=== PATIENT | female | born 1950 | race Caucasian/White ===

== ENCOUNTER 2019-10-04 19:43 | Inpatient (IN) | payer MEDICARE ==
[2019-10-04] MEDS ORDERED: PANTOPRAZOLE 40 MG/10 ML VIAL IVP ONE (20:04)
--- NOTE | 2019-10-04 20:04 | ED ---
General Adult HPI - General Chief complaint: Weakness Stated complaint: low hemoglobin Time Seen by Provider: 10/04/19 19:46 Source: patient Mode of arrival: EMS Limitations: no limitations - History of Present Illness Initial comments: Dictation was produced using [employer] dictation software. please excuse any grammatical, word or spelling errors. This patient was cared for during a federal and state declared state of emergency secondary to Covid 19 Chief Complaint: 69-year-old female transferred from [facility] for anemia. 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 She was instructed to quit emergency department because he did not quite look well. Patient had a workup that district where is found that patient's hemoglobin was very low measuring in the fives. Patient has been complaining of bloody stools eared patient does take anticoagulation medications for A. fib. Patient currently on apixaban. Patient reports that she's had GI bleed before and has seen a GI doctor or she had scoping performed. She is been told that she had bleeding secondary to anticoagulation medications. Patient states that over the last several days she has been feeling fatigued. She denies any chest pain or shortness of breath. Denies any abdominal pain. At [facility] patient was given PRBCs. They recommended that a stool guaiac and rectal exam performed however patient refused adamantly. The ROS documented in this emergency department record has been reviewed and confirmed by me. Those systems with pertinent positive or negative responses have been documented in the HPI. All other systems are other negative and/or noncontributory. PHYSICAL EXAM: General Impression: Alert and oriented x3, not in acute distress, pale HEENT: Normocephalic atraumatic, extra-ocular movements intact, pupils equal and reactive to light bilaterally, mucous membranes moist. Cardiovascular: Heart regular rate and rhythm Chest: Able to complete full sentences, no retractions, no tachypnea Abdomen: abdomen soft, non-tender, non-distended, no organomegaly Musculoskeletal: Pulses present and equal in all extremities, no peripheral edema Motor: no focal deficits noted Neurological: CN II-XII grossly intact, no focal motor or sensory deficits noted Skin: Intact with no visualized rashes Psych: Normal affect and mood ED course:69-year-old female sent in from [facility] for anemia. As upon arrival are within acceptable limits. Patient's well-appearing. Patient not actively bleeding. She is currently receiving blood transfusion. Chest the documentation was reviewed. Patient had anemia 5.5. No other serious abnormalities seen on her labs. Patient ordered for protonix. Vital signs upon arrival are within acceptable limits. Patient will be admitted to telemetry. She is currently stable at this time. While in the emergency department patient has not had any signs of active bleeding. Patient does not meet any criteria for ICU admission at this time. She is currently receiving blood transfusion. Patient will be admitted to Dr. Navarrete's service. GI on consult. EKG interpretation: Ventricular rate 106, sinus tachycardia,. Interval to 44, QRS 96, QTC 433. No NC prolongation, no QTC prolongation, no ST or T-wave changes noted. - Related Data Allergies Allergy/AdvReac Type Severity Reaction Status Date / Time codeine Allergy Unknown Verified 10/04/19 20:00 hydrocodone Allergy Unknown Verified 10/04/19 20:00 Iodinated Contrast Media Allergy Unknown Verified 10/04/19 20:00 iodine Allergy Unknown Verified 10/04/19 20:00 Review of Systems ROS Statement: Those systems with pertinent positive or pertinent negative responses have been documented in the HPI. ROS Other: All systems not noted in ROS Statement are negative. Past Medical History Past Medical History: Atrial Fibrillation, Asthma, COPD, Diabetes Mellitus, Hypertension Additional Past Medical History / Comment(s): blood transfusion History of Any Multi-Drug Resistant Organisms: None Reported Past Surgical History: Hernia Repair, Orthopedic Surgery, Tubal Ligation Additional Past Surgical History / Comment(s): knee Past Psychological History: No Psychological Hx Reported Smoking Status: Never smoker Past Alcohol Use History: None Reported Past Drug Use History: None Reported General Exam Limitations: no limitations Course Vital Signs 10/04/19 19:52 Temperature 97.8 F Pulse Rate 67 Respiratory 16 Rate Blood Pressure 185/83 O2 Sat by Pulse 100 Oximetry Disposition Clinical Impression: GI bleed, Anemia Disposition: ADMITTED IP TO THIS HOSP Condition: Critical Is patient prescribed a controlled substance at d/c from ED?: No Referrals: Soraida Griffin MD [Primary Care Provider] - 1-2 days Decision Time: 20:15
[2019-10-04] MEDS ORDERED: SODIUM CHLORIDE 0.9% 1,000 ML IV STA (20:05)
[2019-10-04] MEDS ORDERED: ONDANSETRON 4 MG/2 ML VIAL IVP PRN (20:05)
[2019-10-04] MEDS ORDERED: NALOXONE 0.4 MG/ML 1 ML VIAL IV PRN (20:05)
[2019-10-04 20:25] LABS: Anisocytosis Slight; HCT 22.3 % (34.0-46.0); Hypochromasia Marked; MCHC 27.6 g/dL (31.0-37.0); MCV 68.9 fL (80.0-100.0); Mean Platelet Volume 8.1; Microcytosis Marked; Platelet Count 440 k/uL (150-450); Poikilocytosis Slight; RBC 3.24 m/uL (3.80-5.40); RDW 19.1 % (11.5-15.5); WBC 8.2 k/uL (3.8-10.6)
[2019-10-04 20:43] LABS: HGB 6.2 gm/dL (11.4-16.0)
[2019-10-04] MEDS ORDERED: MELATONIN 3 MG TABLET PO PRN (21:06)
[2019-10-04] MEDS ORDERED: MAGNESIUM HYDROXIDE 2,400 MG/10 ML CUP PO PRN (21:06)
[2019-10-04] MEDS ORDERED: MAG HYDROX/AL HYDROX/SIMETH 30 ML CUP PO PRN (21:06)
[2019-10-04] MEDS ORDERED: ACETAMINOPHEN TAB 325 MG TAB PO PRN (21:06)
[2019-10-04] MEDS ORDERED: LACTULOSE 20 GM/30 ML CUP PO PRN (21:06)
[2019-10-04] MEDS ORDERED: CALCIUM CARBONATE 500 MG CHEWABLE PO PRN (21:06)
[2019-10-04 21:57] LABS: Glucose,Whole Blood 112 mg/dL (75-99)
[2019-10-05] MEDS ORDERED: ALBUTEROL NEBULIZED 2.5 MG/3 ML INHALATION PRN (03:17)
[2019-10-05] MEDS ORDERED: traMADol 50 MG TAB PO PRN (04:38)
[2019-10-05] MEDS: lisinopriL 20 MG TAB PO SCH (04:45)
[2019-10-05 06:08] LABS: Glucose,Whole Blood 114 mg/dL (75-99)
[2019-10-05 07:46] LABS: Anisocytosis Slight; HCT 24.5 % (34.0-46.0); HGB 7.2 gm/dL (11.4-16.0); Hypochromasia Marked; MCH 21.7 pg (25.0-35.0); MCHC 29.6 g/dL (31.0-37.0); MCV 73.5 fL (80.0-100.0); Mean Platelet Volume 7.2; Microcytosis Moderate; Platelet Count 427 k/uL (150-450); Poikilocytosis Marked; RBC 3.33 m/uL (3.80-5.40); RDW 19.4 % (11.5-15.5); WBC 8.1 k/uL (3.8-10.6)
[2019-10-05] MEDS: SYMBICORT 160-4.5 MCG INHALER INHALATION SCH ×2 (07:53→21:06)
[2019-10-05] MEDS ORDERED: traMADol 50 MG TAB PO SCH (09:00)
[2019-10-05] MEDS ORDERED: NON FORMULARY DRUG (Potassium Gluconate [Potassium Gluconate] 99 MG) PO SCH (09:00)
[2019-10-05] MEDS ORDERED: NON FORMULARY DRUG (Esomeprazole Magnesium [Nexium 24hr] 20 MG) PO SCH (09:00)
[2019-10-05] MEDS: PANTOPRAZOLE 40 MG/10 ML VIAL IV SCH ×2 (09:05→20:00)
[2019-10-05] MEDS: CHOLECALCIFEROL 1,000 UNIT TAB PO SCH (09:05)
[2019-10-05] MEDS: FUROSEMIDE 20 MG TAB PO SCH ×2 (09:05→20:00)
[2019-10-05] MEDS: AMIODARONE 200 MG TAB PO SCH (09:05)
[2019-10-05] MEDS: GABAPENTIN 300 MG CAP PO SCH ×4 (09:05→20:00)
[2019-10-05 12:39] LABS: Glucose,Whole Blood 120 mg/dL (75-99)
[2019-10-05 17:33] LABS: Glucose,Whole Blood 117 mg/dL (75-99)
[2019-10-05 18:04] LABS: Anisocytosis Slight; Basophils # (A) 0.1 k/uL (0-0.2); Basophils % (A) 1 %; Eosinophils # (A) 0.2 k/uL (0-0.7); Eosinophils % (A) 2 %; HCT 26.4 % (34.0-46.0); HGB 7.3 gm/dL (11.4-16.0); Hypochromasia Marked; Lymphocytes # (A) 0.7 k/uL (1.0-4.8); Lymphocytes % (A) 8 %; MCH 20.2 pg (25.0-35.0); MCHC 27.5 g/dL (31.0-37.0); MCV 73.4 fL (80.0-100.0); Mean Platelet Volume 6.8; Microcytosis Moderate; Monocytes # (A) 0.5 k/uL (0-1.0); Monocytes % (A) 7 %; Neutrophils # (A) 6.3 k/uL (1.3-7.7); Neutrophils % (A) 80 %; Platelet Count 427 k/uL (150-450); Poikilocytosis Marked; RDW 19.8 % (11.5-15.5); WBC 7.9 k/uL (3.8-10.6)
[2019-10-05] MEDS: PRAVASTATIN SODIUM 40 MG TAB PO SCH (20:00)
--- NOTE | 2019-10-05 20:13 | P.HPIM ---
History of Present Illness H&P Date: 10/05/19 Chief Complaint: Black stools History of presenting complaint: This is a pleasant 69-year-old patient of Dr. Damaris Griffin. Chronic stable medical conditions include atrial fibrillation, asthma, diabetes, hypertension. Patient presents with progressive shortness of breath coming on for a while. Patient has noted some dark stools. Not go her pain. Patient had EGD about a year ago by Dr. Nadine Chacon supposedly unremarkable. Patient the past has had bleeding with Coumadin and that also completing this in December. Plan was to discontinue any blood tenderness. Patient did have ablation carried out and was subsequently put on eliquis. Denies any chest pain. Tired and rundown. No fever no chills. Hemoglobin the ER was 6.2. Unit of blood was given. Review of systems: GEN.: Tired EYES: None HEENT: None NECK: None RESPIRATORY: Shortness of breath CARDIOVASCULAR: None GASTROINTESTINAL: Dark stools GENITOURINARY: None MUSCULOSKELETAL: None LYMPHATICS: None HEMATOLOGICAL: None PSYCHIATRY: None NEUROLOGICAL: None Past medical history to include: Atrial fibrillation, asthma/COPD, diabetes, hypertension, bleeding with Coumadin and xarelto Social history: Patient smoked for 20 years study age of 14 about a pack or 2. No alcohol. Lives with her boyfriend Physical examination: VITAL SIGNS: 97.8, 67, 16, 185/83, 100% on 2 L GENERAL: BMI 40.4, sitting up in bed, tired. EYES: Pupils equal. Conjunctiva palel. HEENT: External appearance of nose and ears normal, oral cavity grossly normal. NECK: JVD not raised; masses not palpable. HEART: First and second heart sounds are normal; no edema. LUNGS:[ Respiratory rate normal; decreased breath sounds. ABDOMEN: Soft, nontender, liver spleen not palpable, no masses palpable. PSYCH: Alert and oriented x3; mood and affect normal. NEUROLOGICAL: Cranial nerves grossly intact; no facial asymmetry, power and sensation grossly intact. LYMPHATICS: No lymph nodes palpable in the axilla and neck INVESTIGATIONS, reviewed in the clinical context: White count 8.2 hemoglobin 6.2 platelets 440 this morning 7.2 hemoglobin Assessment: -Acute GI bleed in a patient who is on eliquis -Acute symptomatic blood loss anemia from GI bleed requiring 1 unit of blood -Asthma/COPD in an ex-smoker -Obesity BMI 40.4 -Essential hypertension -Hyperlipidemia -Paroxysmal atrial fibrillation currently in sinus rhythm with a history of ablation Plan: Patient's eliquis has been held. Patient is on PPI. Follow H&H. GI was consulted. Patient be nothing by mouth after midnight with a view to endoscopy Past Medical History Past Medical History: Atrial Fibrillation, Asthma, COPD, Diabetes Mellitus, Hypertension Additional Past Medical History / Comment(s): blood transfusion History of Any Multi-Drug Resistant Organisms: None Reported Past Surgical History: Hernia Repair, Orthopedic Surgery, Tubal Ligation Additional Past Surgical History / Comment(s): knee Past Anesthesia/Blood Transfusion Reactions: No Reported Reaction Past Psychological History: No Psychological Hx Reported Smoking Status: Never smoker Past Alcohol Use History: None Reported Additional Past Alcohol Use History / Comment(s): smoked for 20 years starting at age 14 stating, "about a pack or two a week." Past Drug Use History: None Reported Medications and Allergies Home Medications Medication Instructions Recorded Confirmed Type Albuterol Sulfate [Proair Hfa] 2 puff INHALATION RT-Q6H PRN 10/04/19 10/04/19 History Amiodarone HCl [Pacerone] 200 mg PO DAILY 10/04/19 10/04/19 History Apixaban [Eliquis] 5 mg PO DAILY 10/04/19 10/04/19 History Benazepril HCl 20 mg PO DAILY 10/04/19 10/04/19 History Cholecalciferol [Vitamin D3 (25 2,000 unit PO DAILY 10/04/19 10/04/19 History Mcg = 1000 Iu)] Esomeprazole Magnesium [NexIUM 20 mg PO DAILY 10/04/19 10/04/19 History 24Hr] Furosemide [Lasix] 20 mg PO BID 10/04/19 10/04/19 History Gabapentin [Neurontin] 300 mg PO QID 10/04/19 10/04/19 History Mometasone/Formoterol [Dulera 200 1 puff PO RT-BID 10/04/19 10/04/19 History Mcg-5 Mcg Inhaler] Potassium Gluconate 99 mg PO DAILY 10/04/19 10/04/19 History Pravastatin Sodium [Pravachol] 40 mg PO HS 10/04/19 10/04/19 History traMADol HCL 50 mg PO BID 10/04/19 10/04/19 History Allergies Allergy/AdvReac Type Severity Reaction Status Date / Time codeine Allergy Unknown Verified 10/04/19 20:55 hydrocodone Allergy Unknown Verified 10/04/19 20:55 Iodinated Contrast Media Allergy Unknown Verified 10/04/19 20:55 iodine Allergy Unknown Verified 10/04/19 20:55 Physical Exam Vitals: Vital Signs Temp Pulse Pulse Resp BP BP Pulse Ox 10/05/19 03:37 97.8 F 66 17 197/75 100 10/05/19 03:00 97.9 F 66 17 197/75 100 10/05/19 00:00 98.8 F 68 18 143/65 100 10/04/19 23:55 98.6 F 63 18 187/76 99 10/04/19 23:25 98.8 F 68 19 143/65 100 10/04/19 23:15 98.4 F 65 19 186/78 100 10/04/19 21:17 98 F 78 16 178/84 98 10/04/19 20:55 98.4 F 66 18 148/67 100 10/04/19 19:52 97.8 F 67 16 185/83 100 Intake and Output 10/04/19 10/05/19 10/05/19 22:59 06:59 14:59 Intake Total 310 0 Balance 310 0 Intake: Oral 0 Blood Product 310 Rc As-1 Unit 310 [id number] Other: Voiding Method Toilet # Voids 1 Weight 99.79 kg 100.1 kg Results CBC & Chem 7: 10/05/19 17:43 Labs: Abnormal Lab Results - Last 24 Hours (Table) 10/04/19 10/04/19 10/04/19 Range/Units 20:18 21:46 21:56 RBC 3.24 L (3.80-5.40) m/uL Hgb 6.2 L* (11.4-16.0) gm/dL Hct 22.3 L (34.0-46.0) % MCV 68.9 L (80.0-100.0) fL MCH 19.0 L (25.0-35.0) pg MCHC 27.6 L (31.0-37.0) g/dL RDW 19.1 H (11.5-15.5) % POC Glucose (mg/dL) 112 H (75-99) mg/dL Crossmatch See Detail 10/05/19 10/05/19 Range/Units 06:07 06:32 RBC 3.33 L (3.80-5.40) m/uL Hgb 7.2 L (11.4-16.0) gm/dL Hct 24.5 L (34.0-46.0) % MCV 73.5 L (80.0-100.0) fL MCH 21.7 L (25.0-35.0) pg MCHC 29.6 L (31.0-37.0) g/dL RDW 19.4 H (11.5-15.5) % POC Glucose (mg/dL) 114 H (75-99) mg/dL Crossmatch Thrombosis Risk Factor Assmnt - Choose All That Apply Any of the Below Risk Factors Present?: Yes Each Factor Represents 1 point: Abnormal pulmonary function (COPD) Other Risk Factors: Yes Each Risk Factor Represents 2 Points: Age 61-74 years Other congenital or acquired thrombophilia - If yes, enter type in comment: No Thrombosis Risk Factor Assessment Total Risk Factor Score: 3 Thrombosis Risk Factor Assessment Level: Moderate Risk
[2019-10-05 20:36] LABS: Glucose,Whole Blood 170 mg/dL (75-99)
[2019-10-06 06:47] LABS: Glucose,Whole Blood 106 mg/dL (75-99)
[2019-10-06] MEDS: SYMBICORT 160-4.5 MCG INHALER INHALATION SCH ×2 (08:15→19:11)
[2019-10-06 12:23] LABS: Glucose,Whole Blood 108 mg/dL (75-99)
[2019-10-06] MEDS ORDERED: fentaNYL (PF) 50 MCG/ML 2 ML AMP ONE (12:43)
[2019-10-06] MEDS ORDERED: MIDAZOLAM 2 MG/2 ML VIAL ONE (12:43)
[2019-10-06] MEDS ORDERED: PROPOFOL 10 MG/ML 20 ML VIAL IV ONE (12:43)
[2019-10-06] MEDS ORDERED: LIDOCAINE 1% INJ 10MG/ML (20 ML MDV) ONE (12:43)
[2019-10-06] MEDS ORDERED: IV FLUID CONTINUATION 1,000 ML IV ONE (12:47)
--- NOTE | 2019-10-06 13:34 | P.CONS ---
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 The patient had been feeling weak, fatigued and was shortness of breath and was noted to have a low hemoglobin. Patient is on anticoagulation therapy with Eliquis. She was found to have a hemoglobin of 6.2, presentation to the emergency department. Patient has had problems with anemia in the past and has undergone multiple upper endoscopies at [facility] with no source of bleeding noted. She has a remote history of colonoscopy but is adamant that she is interested in any further colonoscopic evaluation. She has noted some dark stools over the past 3 days but denies any gross bleeding per rectum. Currently hemoglobin is 7.2 status post transfusion of PRBCs. Review of Systems REVIEW OF SYSTEMS: CONSTITUTIONAL: Denies any fevers, chills, weight change but had reported fatigue prior to presentation. CARDIOVASCULAR: Denies any chest pain, palpitations high or low blood pressures RESPIRATORY: Denies any hemoptysis or cough but has complained of shortness of breath, worse on exertion. GENITOURINARY: No dysuria or hematuria. MUSCULOSKELETAL: No weakness reported. SKIN: Denies any new rashes or lesions, jaundice or pallor. PSYCHIATRIC: Denies any depression or anxiety. NEUROLOGY: Denies headache, denies any new focal deficits. EARS/NOSE/THROAT: No recent hearing change, congestion, nasal discharge or sore throat. EYES: No pain in eyes, discharge or change in vision. GASTROINTESTINAL: As per HPI. Past Medical History Past Medical History: Atrial Fibrillation, Asthma, COPD, Diabetes Mellitus, Hyp ertension Additional Past Medical History / Comment(s): blood transfusion History of Any Multi-Drug Resistant Organisms: None Reported Past Surgical History: Hernia Repair, Orthopedic Surgery, Tubal Ligation Additional Past Surgical History / Comment(s): knee Past Anesthesia/Blood Transfusion Reactions: No Reported Reaction Past Psychological History: No Psychological Hx Reported Smoking Status: Never smoker Past Alcohol Use History: None Reported Additional Past Alcohol Use History / Comment(s): smoked for 20 years starting at age 14 stating, "about a pack or two a week." Past Drug Use History: None Reported Additional History: Family history: Reviewed with the patient and noncontributory to current medical presentation. Medications and Allergies Home Medications Medication Instructions Recorded Confirmed Type Albuterol Sulfate [Proair Hfa] 2 puff INHALATION RT-Q6H PRN 10/04/19 10/04/19 History Amiodarone HCl [Pacerone] 200 mg PO DAILY 10/04/19 10/04/19 History Apixaban [Eliquis] 5 mg PO DAILY 10/04/19 10/04/19 History Benazepril HCl 20 mg PO DAILY 10/04/19 10/04/19 History Cholecalciferol [Vitamin D3 (25 2,000 unit PO DAILY 10/04/19 10/04/19 History Mcg = 1000 Iu)] Esomeprazole Magnesium [NexIUM 20 mg PO DAILY 10/04/19 10/04/19 History 24Hr] Furosemide [Lasix] 20 mg PO BID 10/04/19 10/04/19 History Gabapentin [Neurontin] 300 mg PO QID 10/04/19 10/04/19 History Mometasone/Formoterol [Dulera 200 1 puff PO RT-BID 10/04/19 10/04/19 History Mcg-5 Mcg Inhaler] Potassium Gluconate 99 mg PO DAILY 10/04/19 10/04/19 History Pravastatin Sodium [Pravachol] 40 mg PO HS 10/04/19 10/04/19 History traMADol HCL 50 mg PO BID 10/04/19 10/04/19 History Allergies Allergy/AdvReac Type Severity Reaction Status Date / Time codeine Allergy Unknown Verified 10/04/19 20:55 hydrocodone Allergy Unknown Verified 10/04/19 20:55 Iodinated Contrast Media Allergy Unknown Verified 10/04/19 20:55 iodine Allergy Unknown Verified 10/04/19 20:55 Physical Exam Vitals: Vital Signs Temp Pulse Pulse Resp BP BP Pulse Ox 10/05/19 10:16 176/77 10/05/19 08:05 98.2 F 75 20 219/88 98 10/05/19 03:37 97.8 F 66 17 197/75 100 10/05/19 03:00 97.9 F 66 17 197/75 100 10/05/19 00:00 98.8 F 68 18 143/65 100 10/04/19 23:55 98.6 F 63 18 187/76 99 10/04/19 23:25 98.8 F 68 19 143/65 100 10/04/19 23:15 98.4 F 65 19 186/78 100 10/04/19 21:17 98 F 78 16 178/84 98 10/04/19 20:55 98.4 F 66 18 148/67 100 10/04/19 19:52 97.8 F 67 16 185/83 100 Intake and Output 10/04/19 10/05/19 10/05/19 22:59 06:59 14:59 Intake Total 310 0 Balance 310 0 Intake: Oral 0 Blood Product 310 Rc As-1 Unit 310 [id number] Other: Voiding Method Toilet Toilet # Voids 1 1 Weight 99.79 kg 100.1 kg On physical examination, patient appears comfortable in no apparent distress. HEAD: Normocephalic, atraumatic. EYES: No scleral icterus. No conjunctival injection. MOUTH: No lesions, tongue midline. NECK: Trachea midline, no gross abnormalities. CHEST: Decreased air entry in all lung monteiro. HEART: S1-S2 appreciated. ABDOMEN: Soft, obese. Bowel sounds are positive. No organomegaly. No guarding or rigidity. EXTREMITIES: No pedal edema. SKIN: No rashes, no jaundice. NEUROLOGIC: Alert and oriented x3. No focal deficits. Results CBC & Chem 7: 10/05/19 17:43 Labs: Abnormal Lab Results - Last 24 Hours (Table) 10/04/19 10/04/19 10/04/19 Range/Units 20:18 21:46 21:56 RBC 3.24 L (3.80-5.40) m/uL Hgb 6.2 L* (11.4-16.0) gm/dL Hct 22.3 L (34.0-46.0) % MCV 68.9 L (80.0-100.0) fL MCH 19.0 L (25.0-35.0) pg MCHC 27.6 L (31.0-37.0) g/dL RDW 19.1 H (11.5-15.5) % POC Glucose (mg/dL) 112 H (75-99) mg/dL Crossmatch See Detail 07/28/20 07/28/20 07/28/20 Range/Units 06:07 06:32 12:00 RBC 3.33 L (3.80-5.40) m/uL Hgb 7.2 L (11.4-16.0) gm/dL Hct 24.5 L (34.0-46.0) % MCV 73.5 L (80.0-100.0) fL MCH 21.7 L (25.0-35.0) pg MCHC 29.6 L (31.0-37.0) g/dL RDW 19.4 H (11.5-15.5) % POC Glucose (mg/dL) 114 H 120 H (75-99) mg/dL Crossmatch Assessment and Plan (1) Microcytic hypochromic anemia Narrative/Plan: 69-year-old female with a known history of anemia as well as multiple other comorbidities including atrial fibrillation status post ablation on anticoagulation therapy with Eliquis who presented to the hospital due to weakness, shortness of breath and was found to have a fall in her hemoglobin. Currently 7.2 status post transfusion of packed red blood cells. The patient has undergone extensive endoscopic evaluation with multiple EGDs in the past the back to 2012 due to anemia and similar symptoms. No source of bleeding has been found. She has a remote history of colonoscopy. Unclear etiology nearly to peptic ulcer disease, AVMs, Dieulafoy lesion or other etiology. Current Visit: Yes Status: Acute Code(s): D50.9 - IRON DEFICIENCY ANEMIA, UNSPECIFIED SNOMED Code(s): 09966795 (2) Melena Current Visit: Yes Status: Acute Code(s): K92.1 - MELENA SNOMED Code(s): 3429038 Plan: Supportive care Continue to monitor hemoglobin and hematocrit and transfuse as needed Okay for diet Nothing by mouth after midnight Continue Protonix therapy Plan for EGD tomorrow for further evaluation Extensive discussion with the patient who is unwilling to undergo colonoscopic evaluation at this time but is agreeable to upper endoscopy Continue to hold anticoagulation therapy Thank you for allowing us to participate in the care of patient we will continue to follow
--- NOTE | 2019-10-06 13:41 | P.PCN ---
Date of Procedure: 10/06/19 Description of Procedure: BRIEF HISTORY: 69-year-old female with multiple medical comorbidities including diabetes mellitus, hypertension, asthma and ventricular fibrillation who was sent to the hospital for evaluation from multi skilled operator office for further evaluation. The patient had been feeling weak, fatigued and was shortness of breath and was noted to have a low hemoglobin. Patient is on anticoagulation therapy with Eliquis. She was found to have a hemoglobin of 6.2, presentation to the emergency department. Patient has had problems with anemia in the past and has undergone multiple upper endoscopies at [facility] with no source of bleeding noted. She has a remote history of colonoscopy but is adamant that she is interested in any further colonoscopic evaluation. She has noted some dark stools over the past 3 days but denies any gross bleeding per rectum. Currently hemoglobin is 7.2 status post transfusion of PRBCs. PROCEDURE PERFORMED: Esophagogastroduodenoscopy with biopsy. PREOPERATIVE DIAGNOSIS: Microcytic hypochromic anemia, melena. ESTIMATED BLOOD LOSS: Minimal. IV sedation per anesthesia. PROCEDURE: After informed consent was obtained, the patient was brought into the endoscopy unit. IV sedation was administered by Anesthesia under continuous monitoring. Initially the Olympus GIF-190 video endoscope was inserted into the mouth. Esophagus intubated without any difficulty. It was gradually advanced into the stomach and duodenum and carefully examined. The bulb and the second part of the duodenum appeared normal normal, with biopsies taken. The scope at this time was withdrawn to the stomach, adequately insufflated with air, and upon careful examination, mucosa of the antrum, body, cardia and the fundus appeared normal, except for some mild punctate erythema in the antrum and body suggestive of mild gastritis and a nonbleeding 5 mm gastric ulcer located in the antrum on the greater curvature which was biopsied. The ulcer was somewhat raised with biopsies taken circumferentially around the ulcer. The scope was then withdrawn into the esophagus. The GE junction was located at 40 cm from the incisors with a small 1 cm hiatal hernia noted. The esophagus appeared normal. There were no erosions or ulcerations seen and the patient tolerated the procedure well. IMPRESSION: 1. Antral ulcer without active bleeding or high risk stigmata biopsied. 2. Mild gastritis antrum and body. 3. Duodenal biopsies. 4. Small hiatal hernia. RECOMMENDATIONS: The findings of this examination were discussed with the patient. Okay to resume diet. Continue Protonix 40 mg twice daily. Await pathology from biopsies. Okay to resume Eliquis tomorrow. Extensive discussion with the patient will need to follow-up in the next 1-2 weeks in the GI clinic for results of biopsies.
[2019-10-06] MEDS: FUROSEMIDE 20 MG TAB PO SCH ×2 (14:13→21:02)
[2019-10-06] MEDS: CHOLECALCIFEROL 1,000 UNIT TAB PO SCH (14:30)
[2019-10-06] MEDS: GABAPENTIN 300 MG CAP PO SCH ×4 (14:30→21:02)
[2019-10-06] MEDS: PANTOPRAZOLE 40 MG/10 ML VIAL IV SCH ×2 (14:30→21:02)
[2019-10-06] MEDS: AMIODARONE 200 MG TAB PO SCH (14:30)
[2019-10-06] MEDS: lisinopriL 20 MG TAB PO SCH (14:30)
[2019-10-06 15:03] LABS: Anisocytosis Moderate; Basophils # (A) 0.1 k/uL (0-0.2); Basophils % (A) 1 %; Eosinophils # (A) 0.2 k/uL (0-0.7); Eosinophils % (A) 2 %; HCT 27.9 % (34.0-46.0); HGB 7.7 gm/dL (11.4-16.0); Hypochromasia Marked; Lymphocytes # (A) 0.5 k/uL (1.0-4.8); Lymphocytes % (A) 6 %; MCH 20.9 pg (25.0-35.0); MCHC 27.7 g/dL (31.0-37.0); MCV 75.4 fL (80.0-100.0); Mean Platelet Volume 7.4; Microcytosis Moderate; Monocytes # (A) 0.4 k/uL (0-1.0); Monocytes % (A) 5 %; Neutrophils # (A) 7.3 k/uL (1.3-7.7); Neutrophils % (A) 84 %; Platelet Count 430 k/uL (150-450); Poikilocytosis Marked; RDW 20.1 % (11.5-15.5); WBC 8.6 k/uL (3.8-10.6)
[2019-10-06 17:22] LABS: Glucose,Whole Blood 156 mg/dL (75-99)
[2019-10-06 20:28] LABS: Glucose,Whole Blood 115 mg/dL (75-99)
[2019-10-06] MEDS: PRAVASTATIN SODIUM 40 MG TAB PO SCH (21:02)
--- NOTE | 2019-10-06 21:28 | P.PN ---
Progress Note - Text Progress Note Date: 10/06/19 Chief Complaint: Black stools History of presenting complaint: This is a pleasant 69-year-old patient of Dr. Damaris Griffin. Chronic stable medical conditions include atrial fibrillation, asthma, diabetes, hypertension. Patient presents with progressive shortness of breath coming on for a while. Patient has noted some dark stools. Not go her pain. Patient had EGD about a year ago by Dr. Nadine Chacon supposedly unremarkable. Patient the past has had bleeding with Coumadin and that also completing this in December. Plan was to discontinue any blood tenderness. Patient did have ablation carried out and was subsequently put on eliquis. Denies any chest pain. Tired and rundown. No fever no chills. Hemoglobin the ER was 6.2. Unit of blood was given. Today-underwent EGD.-Antral ulcer without bleeding, mild gastritis and duodenal biopsies. Gastric ulcer edges were raised. Biopsies done. Tired Review of systems: Was done for constitutional, cardiovascular, GI, pulmonary. relevant finding as above Active Medications Acetaminophen (Tylenol Tab) 650 mg PO Q6HR PRN PRN Reason: Mild Pain or Fever > 100.5 Al Hydroxide/Mg Hydroxide (Maalox) 15 ml PO Q6HR PRN PRN Reason: Indigestion Albuterol Sulfate (Ventolin Nebulized) 2.5 mg INHALATION RT-Q6H PRN PRN Reason: Shortness Of Breath Amiodarone HCl (Cordarone) 200 mg PO DAILY [facility] Last Admin: 10/06/19 14:30 Dose: 200 mg Documented by: Budesonide/Formoterol Fumarate (Symbicort 160-4.5 Mcg Inhaler) 2 puff INHALATION RT-BID [facility] Last Admin: 10/06/19 19:11 Dose: 2 puff Documented by: Calcium Carbonate/Glycine (Tums) 500 mg PO Q4HR PRN PRN Reason: Dyspepsia Cholecalciferol (Vitamin D3 (25 Mcg = 1000 Iu)) 2,000 unit PO DAILY [facility] Last Admin: 10/06/19 14:30 Dose: 2,000 unit Documented by: Furosemide (Lasix) 20 mg PO BID [facility] Last Admin: 10/06/19 21:02 Dose: 20 mg Documented by: Gabapentin (Neurontin) 300 mg PO QID [facility] Last Admin: 10/06/19 21:02 Dose: 300 mg Documented by: Lactulose (Cephulac) 20 gm PO DAILY PRN PRN Reason: Constipation Lisinopril (Zestril) 20 mg PO DAILY [facility] Last Admin: 10/06/19 14:30 Dose: 20 mg Documented by: Magnesium Hydroxide (Milk Of Magnesia) 2,400 mg PO DAILY PRN PRN Reason: Constipation Melatonin (Melatonin) 3 mg PO HS PRN PRN Reason: Insomnia Naloxone HCl (Narcan) 0.2 mg IV Q2M PRN PRN Reason: Opioid Reversal Ondansetron HCl (Zofran) 4 mg IVP Q8HR PRN PRN Reason: Nausea And Vomiting Pantoprazole Sodium (Protonix) 40 mg IV BID [facility] Last Admin: 10/06/19 21:02 Dose: 40 mg Documented by: Pravastatin Sodium (Pravachol) 40 mg PO HS [facility] Last Admin: 10/06/19 21:02 Dose: 40 mg Documented by: Tramadol HCl (Ultram) 50 mg PO BID PRN PRN Reason: Pain Scale 6 To 8 Last Admin: 10/05/19 04:44 Dose: 50 mg Documented by: Physical examination: VITAL SIGNS: 98.4, 69, 19, 139/75, 100% on 2 L GENERAL: Laying in bed, awake EYES: Pupils equal. Conjunctiva palel. HEENT: External appearance of nose and ears normal, oral cavity grossly normal. NECK: JVD not raised; masses not palpable. HEART: First and second heart sounds are normal; no edema. LUNGS:[ Respiratory rate normal; decreased breath sounds. ABDOMEN: Soft, nontender, liver spleen not palpable, no masses palpable. 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 Continue to hold eliquis per GI. Diet to be advanced. Repeat labs in the morning.
[2019-10-07 00:46] VITALS: RESP 18
[2019-10-07 06:13] LABS: Anisocytosis Moderate; HCT 25.3 % (34.0-46.0); HGB 7.1 gm/dL (11.4-16.0); Hypochromasia Marked; MCH 20.6 pg (25.0-35.0); MCV 73.6 fL (80.0-100.0); Microcytosis Marked; Platelet Count 404 k/uL (150-450); Poikilocytosis Marked; RBC 3.44 m/uL (3.80-5.40); RDW 20.9 % (11.5-15.5); WBC 8.8 k/uL (3.8-10.6)
[2019-10-07 06:19] LABS: Glucose,Whole Blood 114 mg/dL (75-99)
[2019-10-07] MEDS ORDERED: PANTOPRAZOLE 40 MG TABLET PO SCH (07:30)
[2019-10-07] MEDS: SYMBICORT 160-4.5 MCG INHALER INHALATION SCH (07:51)
[2019-10-07] MEDS: CHOLECALCIFEROL 1,000 UNIT TAB PO SCH (08:42)
[2019-10-07] MEDS: lisinopriL 20 MG TAB PO SCH (08:42)
[2019-10-07] MEDS: AMIODARONE 200 MG TAB PO SCH (08:42)
[2019-10-07] MEDS: GABAPENTIN 300 MG CAP PO SCH ×2 (08:42→14:04)
[2019-10-07] MEDS: FUROSEMIDE 20 MG TAB PO SCH (08:42)
[2019-10-07 12:34] LABS: Glucose,Whole Blood 122 mg/dL (75-99)
[2019-10-07 13:06] VITALS: PULSE 65
[2019-10-07 13:44] VITALS: BP 178/78; TEMP 98
[2019-10-07 14:37] LABS: Anisocytosis Moderate; HCT 29.8 % (34.0-46.0); HGB 8.4 gm/dL (11.4-16.0); Hypochromasia Marked; MCH 21.4 pg (25.0-35.0); MCHC 28.1 g/dL (31.0-37.0); Mean Platelet Volume 7.3; Microcytosis Moderate; Platelet Count 431 k/uL (150-450); Poikilocytosis Marked; RBC 3.92 m/uL (3.80-5.40); RDW 20.4 % (11.5-15.5); WBC 10.9 k/uL (3.8-10.6)
[2019-10-07 17:09] LABS: Folate, Serum 9.4 ng/mL
[2019-10-07 17:22] LABS: % Iron Saturation 5.36 (12.00-45.00); Ferritin 12.1 ng/mL (10.0-291.0)
--- NOTE | 2019-10-07 18:34 | P.DS ---
Providers Date of admission: 10/04/19 20:06 Expected date of discharge: 10/07/19 Attending physician: Shukri Navarrete Consults: 10/04/19 20:05 Consult Physician Routine Consulting Provider: Rodriguez Parkinson Consult Reason/Comments: gi bleed Do you want consulting provider notified?: Yes Primary care physician: Soraida Griffin [facility] Course: Chief Complaint: Black stools History of presenting complaint: This is a pleasant 69-year-old patient of Dr. Damaris Griffin. Chronic stable medical conditions include atrial fibrillation, asthma, diabetes, hypertension. Patient presents with progressive shortness of breath coming on for a while. Patient has noted some dark stools. Not go her pain. Patient had EGD about a year ago by Dr. Nadine Chacon supposedly unremarkable. Patient the past has had bleeding with Coumadin and that also completing this in December. Plan was to discontinue any blood tenderness. Patient did have ablation carried out and was subsequently put on eliquis. Denies any chest pain. Tired and rundown. No fever no chills. Hemoglobin the ER was 6.2. Unit of blood was given. EGD.- Antral ulcer without bleeding, mild gastritis and duodenal biopsies. Gastric ulcer edges were raised. Biopsies done Today-hemoglobin this morning was 7.1. I did order a unit of blood. Plan for patient to go home later today. Did discuss that to hold off antibiotic ventilation for now. 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 Repeat CBC as an outpatient. Biopsy of the gastric ulcer edges did come back showing gastritis. Getting for H pylori. No malignancy reported Discussion and discharge planning more than 35 minutes Consultation: Dr. Cortes from GI Physical examination: VITAL SIGNS: 98, 65, 18, GENERAL: Laying in bed, awake EYES: Pupils equal. Conjunctiva palel. HEENT: External appearance of nose and ears normal, oral cavity grossly normal. NECK: JVD not raised; masses not palpable. HEART: First and second heart sounds are normal; no edema. LUNGS:[ Respiratory rate normal; decreased breath sounds. ABDOMEN: Soft, nontender, liver spleen not palpable, no masses palpable. INVESTIGATIONS, reviewed in the clinical context: Hemoglobin 8.4 Previous testing White count 8.2 hemoglobin 6.2 platelets 440 this morning 7.2 hemoglobin Assessment: -Acute GI bleed in a patient who is on eliquis, likely from gastric ulcer-bi opsies done of the raised edges-no malignancy reported -Acute blood loss anemia from GI tract requiring-2 units of blood -Gastritis -Acute symptomatic blood loss anemia from GI bleed requiring 1 unit of blood -Asthma/COPD in an ex-smoker -Obesity BMI 40.4 -Essential hypertension -Hyperlipidemia -Paroxysmal atrial fibrillation currently in sinus rhythm with a history of ablation-eliquis hold for now until follow-up with cardiology Disposition: Home Patient Condition at Discharge: Stable Plan - Discharge Summary Discharge Rx Participant: No New Discharge Prescriptions: Continue Potassium Gluconate 99 mg PO DAILY Cholecalciferol [Vitamin D3 (25 Mcg = 1000 Iu)] 2,000 unit PO DAILY traMADol HCL 50 mg PO BID Pravastatin Sodium [Pravachol] 40 mg PO HS Gabapentin [Neurontin] 300 mg PO QID Albuterol Sulfate [Proair Hfa] 2 puff INHALATION RT-Q6H PRN PRN Reason: Shortness Of Breath Apixaban [Eliquis] 5 mg PO DAILY Furosemide [Lasix] 20 mg PO BID Mometasone/Formoterol [Dulera 200 Mcg-5 Mcg Inhaler] 1 puff PO RT-BID Benazepril HCl 20 mg PO DAILY Amiodarone HCl [Pacerone] 200 mg PO DAILY Changed Esomeprazole Magnesium [NexIUM 24Hr] 20 mg PO BID #60 tab Discharge Medication List Albuterol Sulfate [Proair Hfa] 2 puff INHALATION RT-Q6H PRN 10/04/19 [History] Amiodarone HCl [Pacerone] 200 mg PO DAILY 10/04/19 [History] Apixaban [Eliquis] 5 mg PO DAILY 10/04/19 [History] Benazepril HCl 20 mg PO DAILY 10/04/19 [History] Cholecalciferol [Vitamin D3 (25 Mcg = 1000 Iu)] 2,000 unit PO DAILY 10/04/19 [History] Furosemide [Lasix] 20 mg PO BID 10/04/19 [History] Gabapentin [Neurontin] 300 mg PO QID 10/04/19 [History] Mometasone/Formoterol [Dulera 200 Mcg-5 Mcg Inhaler] 1 puff PO RT-BID 10/04/19 [History] Potassium Gluconate 99 mg PO DAILY 10/04/19 [History] Pravastatin Sodium [Pravachol] 40 mg PO HS 10/04/19 [History] traMADol HCL 50 mg PO BID 10/04/19 [History] Esomeprazole Magnesium [NexIUM 24Hr] 20 mg PO BID #60 tab 10/07/19 [Rx] Follow up Appointment(s)/Referral(s): Soraida Griffin MD [Primary Care Provider] - 10/14/19 3:00 pm Rodriguez Parkinson MD [STAFF PHYSICIAN] - 11/16/19 12:25 pm ([address] Chacon.) Patient Instructions/Handouts: Iron Rich Diet (DC), Anemia (DC) Activity/Diet/Wound Care/Special Instructions: cbc - 5 days Discharge Disposition: HOME SELF-CARE
== END 2019-10-07 16:54 | disposition home or self-care (01) | DRG 378 ==
LOC: EC 19:43 → 3SCARD 20:06
PROVIDERS: ADMIT Hospitalist; ATTEND Hospitalist
PROC: 30233N1 Transfusion of Nonautologous Red Blood Cells into Peripheral Vein, Percutaneous Approach (ICD-10-PCS; 2019-10-04)
PROC: 0DB98ZX Excision of Duodenum, Via Natural or Artificial Opening Endoscopic, Diagnostic (ICD-10-PCS; principal; 2019-10-06 07:50)
PROC: 0DB78ZX Excision of Stomach, Pylorus, Via Natural or Artificial Opening Endoscopic, Diagnostic (ICD-10-PCS; principal; 2019-10-06 07:50)
DX: K25.4 Chronic or unspecified gastric ulcer with hemorrhage (principal); D62 Acute posthemorrhagic anemia; Z68.41 Body mass index [BMI] 40.0-44.9, adult; Z11.59 Encounter for screening for other viral diseases; I48.0 Paroxysmal atrial fibrillation; J44.9 Chronic obstructive pulmonary disease, unspecified; E11.9 Type 2 diabetes mellitus without complications; E66.9 Obesity, unspecified; I10 Essential (primary) hypertension; E78.5 Hyperlipidemia, unspecified; K44.9 Diaphragmatic hernia without obstruction or gangrene; K59.00 Constipation, unspecified; G47.00 Insomnia, unspecified; K29.70 Gastritis, unspecified, without bleeding; Z79.01 Long term (current) use of anticoagulants; Z79.899 Other long term (current) drug therapy; Z79.51 Long term (current) use of inhaled steroids; Z87.891 Personal history of nicotine dependence; Z91.041 Radiographic dye allergy status; Z98.51 Tubal ligation status; Z98.890 Other specified postprocedural states; Z88.5 Allergy status to narcotic agent
CPT/HCPCS: 36415; 43239; 82728; 82746; 83540; 83550; 85025; 85027; 86850; 86900; 86901; 86920; 88305; 94640; 96374; 99285